=== PATIENT | female | born 1960 | race Caucasian/White ===

== ENCOUNTER 2017-09-02 06:43 | Day surgery (SDC) ==
[2015-04-20 22:27] VITALS: BMI 30.7
[2017-09-02 10:24] VITALS: TEMP 97.4
[2017-09-02] MEDS ORDERED: DIPRIVAN 20 ML VIAL IVP ONE (10:58)
[2017-09-02] MEDS ORDERED: VERSED ONE (10:58)
[2017-09-02] MEDS ORDERED: LIDOCAINE HCL 2% LUER-JET ONE (10:58)
[2017-09-02 14:48] VITALS: BP 132/67
--- NOTE | 2017-09-03 08:00 | OP ---
PROCEDURE: EGD (ESOPHAGOGASTRODUODENOSCOPY) WITH SMALL BOWEL BIOPSY. ENDOSCOPIST: Laura EDWARDS M.D. INDICATION: IRON DEFICIENCY ANEMIA INSTRUMENT: [id number]-190. MEDICATION: PER ANESTHESIA. PROCEDURE: The patient was positioned for endoscopy. The oropharynx was sprayed with Cetacaine spray and the endoscope was advanced through the bite block into the esophagus and from there advanced to the duodenum. The duodenum was normal. Biopsies were obtained to exclude celiac disease. A few small fundic gland polyps were noted in the stomach. Retroflex exam reveals a normal cardia. The Z-line was regular at 35cm. There is a distal esophageal ring asymptomatic and dilatation performed. Biopsies were also obtained from the antrum for Helicobacter given the fact that she was positive in the past. The remaining exam was normal. PLAN: 1. Review her pathology CC: Dr. Yg YOUNG
--- NOTE | 2017-09-03 08:03 | OP ---
PROCEDURE: COLONOSCOPY TO THE CECUM. ENDOSCOPIST: Laura EDWARDS M.D. INDICATION: IRON DEFICIENCY ANEMIA INSTRUMENT: [id number]. MEDICATION: PER ANESTHESIA. DATE OF LAST COLONOSCOPY: 2014 PROCEDURE: The patient was positioned for colonoscopy. The digital rectal exam was negative. The colonoscope was inserted through the anus and advanced to the cecum. The cecum was identified using the ileocecal valve and the appendiceal orifice as landmarks. The scope was slowly withdrawn through an adequately prepped colon. The exam was normal throughout. The retroflex exam was normal. The patient tolerated the procedure without immediate complication. Withdraw time 8 minutes and 31 seconds. PLAN: 1. Repeat colonoscopy in 5 years. CC: Dr. Cici YOUNG
== END 2017-09-02 12:25 | disposition home or self-care (01) ==
LOC: SURG 06:43
PROVIDERS: ATTEND Internal Medicine Gastroenterology
DX: D50.9 Iron deficiency anemia, unspecified (principal); K31.7 Polyp of stomach and duodenum; B96.81 Helicobacter pylori [H. pylori] as the cause of diseases classified elsewhere
CPT/HCPCS: 87339